=== PATIENT | female | born 2000 | race American Indian/Alaskan Native ===

== ENCOUNTER 2021-03-05 07:16 | Outpatient (CLI) | payer MEDICAID ==
[2021-03-05 09:00] VITALS: BP 118/73
[2021-03-05] MEDS ORDERED: LACTATED RINGERS 1,000 ML IV ONE (09:00)
[2021-03-05 09:09] LABS: Bilirubin,Urine NEG (Negative); Blood,Urine NEG (Negative); Color,Urine Yellow (Yellow); Mucus,Urine 3+ /HPF; Protein,Urine <15 mg/dL mg/dL (Negative)
== END 2021-03-05 10:42 | disposition home or self-care (01) ==
LOC: TRG 07:16 → APU 07:17 → TRG 10:42
PROVIDERS: ATTEND Obstetrics & Gynecology
DX: O26.892 Other specified pregnancy related conditions, second trimester (principal); R10.9 Unspecified abdominal pain; O47.02 False labor before 37 completed weeks of gestation, second trimester; Z3A.24 24 weeks gestation of pregnancy
CPT/HCPCS: 59025; 81001; 87086; 96360; J7120

== ENCOUNTER 2021-03-08 18:57 | Outpatient (CLI) | payer MEDICAID ==
[2021-03-08] MEDS ORDERED: LACTATED RINGERS 1000 ML IV SOLN IV PRN (19:19)
[2021-03-08] MEDS ORDERED: LACTATED RINGERS 500 ML IV ONE (20:19)
[2021-03-08] MEDS ORDERED: SODIUM CHLORIDE 0.9% 1000 ML 1,000 ML IV ONE (20:23)
[2021-03-08] MEDS ORDERED: ONDANSETRON 4 MG/2 ML INJ IV ONE (21:22)
[2021-03-08] MEDS ORDERED: D5W/LACTATED RINGERS 1,000 ML IV SCH (21:30)
[2021-03-08 21:52] LABS: BUN/Creatinine Ratio 23; Blood Urea Nitrogen 9 mg/dL (7-17); Calcium 8.2 mg/dL (8.4-10.2); Hemolysis Index 9
[2021-03-08] MEDS ORDERED: PROMETHAZINE 25 MG RECT SUPP PR ONE (22:45)
[2021-03-08 22:50] VITALS: BP 95/52
== END 2021-03-08 23:23 | disposition home or self-care (01) ==
LOC: TRG 18:57 → APU 19:00 → TRG 23:23
PROVIDERS: ATTEND Obstetrics & Gynecology
DX: O21.2 Late vomiting of pregnancy (principal); O47.02 False labor before 37 completed weeks of gestation, second trimester; Z3A.24 24 weeks gestation of pregnancy
CPT/HCPCS: 36415; 59025; 80048; 96361; 96374; J2405; J7030; J7120; J7121; 96360

== ENCOUNTER 2021-04-18 21:40 | Outpatient (CLI) | payer MEDICAID ==
[2021-04-18 22:00] VITALS: BP 113/69
[2021-04-18] MEDS ORDERED: LACTATED RINGERS 1,000 ML IV ONE (22:08)
[2021-04-18 23:06] LABS: Bacteria,Urine 3+ /HPF (Negative); Bilirubin,Urine NEG (Negative); Blood,Urine NEG (Negative); Color,Urine Yellow (Yellow); Mucus,Urine 3+ /HPF
[2021-04-18] MEDS ORDERED: LIDOCAINE-MPF (1%) 10 MG/1 ML VIAL 5 ML INFILTRATI ONE (23:51)
== END 2021-04-19 00:05 | disposition home or self-care (01) ==
LOC: TRG 21:40 → APU 21:46 → TRG 04-19 00:05
PROVIDERS: ATTEND Obstetrics & Gynecology
DX: O26.893 Other specified pregnancy related conditions, third trimester (principal); M54.5 Low back pain; R10.9 Unspecified abdominal pain; Z3A.30 30 weeks gestation of pregnancy
CPT/HCPCS: 59025; 81001; 87076; 87086; 87186; 96372; J0696

== ENCOUNTER 2021-05-26 01:03 | Outpatient (CLI) | payer MEDICAID ==
[2021-05-26 01:41] VITALS: BP 119/67
== END 2021-05-26 02:50 | disposition home or self-care (01) ==
LOC: TRG 01:03 → APU 01:05 → TRG 02:50
PROVIDERS: ATTEND Obstetrics & Gynecology
DX: Z34.93 Encounter for supervision of normal pregnancy, unspecified, third trimester (principal); Z3A.36 36 weeks gestation of pregnancy
CPT/HCPCS: 59025

== ENCOUNTER 2021-06-05 04:08 | Inpatient (IN) | payer MEDICAID ==
[2021-06-05] MEDS ORDERED: fentaNYL 100 MCG/2 ML INJ IV PRN ×2 (06:11→06:18)
[2021-06-05] MEDS ORDERED: OXYTOCIN 10 UNIT/1 ML INJ IM PRN (06:11)
[2021-06-05] MEDS ORDERED: miSOPROStol 200 MCG TAB PR PRN (06:11)
[2021-06-05] MEDS ORDERED: ONDANSETRON 4 MG/2 ML INJ IV PRN ×3 (06:11→18:48)
[2021-06-05] MEDS ORDERED: LIDOCAINE (2%) 20 MG/1 ML VIAL 20 ML MDV INFILTRATI ONE ×2 (06:11→18:23)
[2021-06-05] MEDS ORDERED: ePHEDrine SULFATE 50 MG/1 ML INJ IV PRN ×2 (06:11→11:04)
[2021-06-05] MEDS ORDERED: METHYLERGONOVINE MALEATE 0.2 MG/ML VIAL IM PRN (06:11)
[2021-06-05] MEDS ORDERED: BUTORPHANOL 2 MG/1 ML INJ IV PRN (06:11)
[2021-06-05] MEDS ORDERED: CARBOPROST TROMETHAMINE 250 MCG/1 ML INJ IM PRN (06:11)
[2021-06-05] MEDS ORDERED: NALOXONE 0.4 MG/1 ML INJ IV PRN (06:11)
[2021-06-05] MEDS ORDERED: MINERAL OIL 30 ML ORAL LIQD PO PRN (06:11)
[2021-06-05] MEDS ORDERED: LOPERAMIDE 2 MG CAP PO PRN (06:11)
[2021-06-05] MEDS ORDERED: TERBUTALINE 1 MG/1 ML INJ SUB-Q PRN (06:11)
[2021-06-05] MEDS ORDERED: LACTATED RINGERS 1,000 ML IV SCH (06:15)
[2021-06-05] MEDS ORDERED: ACETAMINOPHEN 325 MG TAB PO PRN ×2 (06:17→18:48)
[2021-06-05] MEDS ORDERED: OXYTOCIN DRIP 30 UNITS/500 ML BAG IV SCH (07:00)
[2021-06-05 07:48] LABS: Hematocrit 34.5 % (30.3-42.9); Hemoglobin 11.6 gm/dl (10.1-14.3); Mean Corpuscular HGB Conc 34 % (30-34); Mean Corpuscular Volume 81 fl (79-97); Platelet Count 240 K/mm3 (140-440); Red Blood Count 4.27 M/mm3 (3.65-5.03)
[2021-06-05] MEDS: LACTATED RINGERS 1,000 ML IV SCH ×2 (08:37→16:11)
[2021-06-05] MEDS: OXYTOCIN DRIP 30 UNITS/500 ML BAG IV SCH ×2 (09:15→13:02)
--- NOTE | 2021-06-05 10:54 | History and Physical Report ---
History of Present Illness Date of examination: 06/05/21 Date of admission: June 05, 2021 Chief complaint: Leakage of fluid History of present illness: 21-year-old G1, P0 at 37+3 weeks who presents with gross rupture of membranes. The patient is also experiencing irregular contractions. Her course was initiated in first trimester. Her care has been complicated by STD exposure of chlamydia. 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 Her anatomy scan was within normal limits. She is GBS negative Past History Past Medical History: other (Vitamin D deficiency) Past Surgical History: tonsillectomy Social history: single - Obstetrical History Expected Date of Delivery: 06/23/21 Actual Gestation: 37 Week(s) 3 Day(s) : 1 Para: 0 Hx # Term Pregnancies: 0 Number of Pregnancies: 0 Spontaneous Abortions: 0 Induced : 0 Number of Living Children: 0 Medications and Allergies Allergies Allergy/AdvReac Type Severity Reaction Status Date / Time No Known Allergies Allergy Unverified 03/05/21 07:52 Home Medications Medication Instructions Recorded Confirmed Last Taken Type Vitamin 1 tab PO DAILY 03/05/21 06/05/21 1 Day Ago History ~06/04/21 Active Meds: Active Medications Acetaminophen (Acetaminophen 325 Mg Tab) 325 mg PO Q6H PRN PRN Reason: Pain, Mild (1-3) Butorphanol Tartrate (Butorphanol 2 Mg/1 Ml Inj) 1 mg IV Q2H PRN PRN Reason: Pain, Moderate(4-6) LABOR PAIN Last Admin: 06/05/21 08:21 Dose: 1 mg Documented by: Butorphanol Tartrate (Butorphanol 2 Mg/1 Ml Inj) 2 mg IV Q2H PRN PRN Reason: Pain , Severe (7-10) Carboprost Tromethamine (Carboprost Tromethamine 250 Mcg/1 Ml Inj) 250 mcg IM ONCE PRN PRN Reason: Uterine Bleeding Ephedrine Sulfate (Ephedrine Sulfate 50 Mg/1 Ml Inj) 10 mg IV Q2M PRN PRN Reason: Hypotension Fentanyl (Fentanyl 100 Mcg/2 Ml Inj) 100 mcg IV Q2H PRN PRN Reason: Pain,Severe (7-10) LABOR PAIN Oxytocin/Sodium Chloride (Pitocin/Ns 30 Unit/500ml) 30 units in 500 mls @ 4 mls/hr IV TITR LIBBY; Protocol Last Admin: 06/05/21 09:15 Dose: 4 ml/hr, 4 mls/hr Documented by: Oxytocin/Sodium Chloride (Pitocin/Ns 30 Unit/500ml) 30 units in 500 mls @ 40 mls/hr IV TITR LIBBY; Protocol Lactated Ringer's (Lactated Ringers) 1,000 mls @ 125 mls/hr IV DIRECT LIBBY Last Admin: 06/05/21 08:37 Dose: 125 mls/hr Documented by: Loperamide HCl (Loperamide 2 Mg Cap) 2 mg PO ONCE PRN PRN Reason: give with Hemabate Methylergonovine Maleate (Methylergonovine Maleate 0.2 Mg/Ml Vial) 0.2 mg IM ONCE PRN PRN Reason: Uterine Bleeding Mineral Oil (Mineral Oil 30 Ml Oral Liqd) 30 ml PO QHS PRN PRN Reason: Constipation Misoprostol (Misoprostol 200 Mcg Tab) 800 mcg [place] ONCE PRN PRN Reason: Uterine Bleeding Naloxone HCl (Naloxone 0.4 Mg/1 Ml Inj) 0.1 mg IV Q2MIN PRN PRN Reason: Res Rate </= 8 or 02 SAT < 92% Ondansetron HCl (Ondansetron 4 Mg/2 Ml Inj) 4 mg IV Q8H PRN PRN Reason: Nausea And Vomiting Last Admin: 06/05/21 08:22 Dose: 4 mg Documented by: Oxytocin (Oxytocin 10 Unit/1 Ml Inj) 10 unit IM ONCE PRN PRN Reason: Uterine Bleeding Terbutaline Sulfate (Terbutaline 1 Mg/1 Ml Inj) 0.25 mg SUB-Q ONCE PRN PRN Reason: Hyperstimulation/Hypertonicity Review of Systems All systems: negative Genitourinary: leakage of fluid, contractions - Vital Signs Vital signs: Vital Signs Temp Pulse BP 97.9 F 94 H 124/75 06/05/21 04:28 06/05/21 04:28 06/05/21 04:28 Temp Pulse Resp BP Pulse Ox 98.3 F 108 H 18 119/75 98 06/05/21 08:10 06/05/21 10:49 06/05/21 08:10 06/05/21 08:12 06/05/21 10:49 - Physical Exam Breasts: Positive: deferred Cardiovascular: Regular rate Lungs: Positive: Clear to auscultation Abdomen: Positive: normal appearance - Obstetrical Cervical Dilatation: 1.5 Results Result Diagrams: 06/05/21 06:45 Abnormal lab results 06/05/21 06/05/21 Range/Units 04:40 06:45 MCH 27 L (28-32) pg RDW 16.0 H (13.2-15.2) % Membranes Rupture Positive A (Negative) All other labs normal. Assessment and Plan - Patient Problems (1) Spontaneous rupture of membranes Current Visit: Yes Status: Acute Plan to address problem: Admit to labor and delivery Augment with Pitocin
[2021-06-05] MEDS ORDERED: NALOXONE 2 MG/2 ML INJ IV PRN (11:04)
[2021-06-05] MEDS ORDERED: diphenhydrAMINE 50 MG/ML VIAL IV PRN (11:04)
[2021-06-05] MEDS ORDERED: NalbUPHINE 10 MG/1 ML INJ IV PRN (11:04)
[2021-06-05] MEDS: BUTORPHANOL 2 MG/1 ML INJ IV PRN ×2 (11:17→14:20)
[2021-06-05] MEDS ORDERED: fentaNYL-BUPIV 2 MCG/ML-0.125% 200 MCG/100 ML BAG EPIDURAL SCH (12:00)
[2021-06-05] MEDS ORDERED: LACTATED RINGERS 250 ML IV SOLN IV ONE (12:00)
[2021-06-05] MEDS ORDERED: HYDROcodone/ACETAMINOPHEN 5-325 MG TAB PO PRN (18:48)
[2021-06-05] MEDS ORDERED: LANOLIN/ZINC/DIMETHICONE (LANSINOH) 7 GM TP PRN (18:48)
[2021-06-05] MEDS ORDERED: PROMETHAZINE 25 MG RECT SUPP PR PRN (18:48)
[2021-06-05] MEDS ORDERED: MAGNESIUM HYDROXIDE (MOM) ORAL LIQD UDC PO PRN (18:48)
[2021-06-05] MEDS ORDERED: PROMETHAZINE 25 MG TAB PO PRN (18:48)
[2021-06-05] MEDS ORDERED: WITCH HAZEL/ GLYCERIN PAD TP PRN (18:48)
[2021-06-05] MEDS ORDERED: diphenhydrAMINE 25 MG CAP PO PRN (18:48)
--- NOTE | 2021-06-05 18:52 | Procedure Note ---
OB Delivery Note - Delivery Date of Delivery: 06/05/21 Surgeon: ISAIAH WEINER Estimated blood loss: 200cc - Vaginal Delivery position: OA Intrapartum events: other(please specify) (precipitous nurse delivery) Delivery placenta: spontaneous Delivery cord: 3 umbilical vessels Episiotomy: none Delivery comments: I was called for the precipitous nurse delivery of this viable female. Upon entering the room, patient had delivered atrauamtically. I delivered an intact placenta spontaneously(three vessel cord). No lacerations All sponge, needle and instrument counts correctx2 Mom and baby stable. EBL 200ml. Renato Weiner MD
[2021-06-05] MEDS ORDERED: oxyCODONE /ACETAMINOPHEN 5-325MG TAB PO PRN (21:50)
[2021-06-05] MEDS: IBUPROFEN 600 MG TAB PO PRN (22:06)
[2021-06-06] MEDS ORDERED: IBUPROFEN 600 MG TAB PO SCH
[2021-06-06] MEDS: IBUPROFEN 600 MG TAB PO PRN (05:34)
[2021-06-06 08:57] VITALS: BP 115/63
--- NOTE | 2021-06-06 11:26 | Progress Note ---
Assessment and Plan - Patient Problems (1) Spontaneous rupture of membranes Current Visit: Yes Status: Acute Plan to address problem: Patient doing well Discharge home Subjective - Subjective Date of service: 06/06/21 Interval history: Patient is currently without any significant complaints. Her pain is well controlled. Patient reports: appetite normal, voiding normally, pain well controlled : doing well Objective - Vital Signs Latest vital signs: Vital Signs Temp Pulse Resp BP BP Pulse Ox 06/06/21 08:43 97.5 F L 98 H 18 115/63 98 06/06/21 06:34 18 06/06/21 05:34 18 06/06/21 04:41 98.0 F 106 H 18 106/42 97 06/06/21 00:30 98.6 F 74 18 114/78 06/05/21 23:06 18 06/05/21 22:06 18 06/05/21 20:49 98.3 F 104 H 20 118/76 97 06/05/21 20:16 100 H 98 06/05/21 20:11 109 H 99 06/05/21 20:09 94 H 120/69 06/05/21 20:06 110 H 99 06/05/21 20:01 111 H 98 06/05/21 19:56 113 H 98 06/05/21 19:54 120 H 125/68 06/05/21 19:51 115 H 99 06/05/21 19:46 107 H 98 06/05/21 19:41 113 H 98 06/05/21 19:39 112 H 117/67 06/05/21 19:36 111 H 97 06/05/21 19:31 114 H 99 06/05/21 19:26 111 H 99 06/05/21 19:24 113 H 122/70 06/05/21 19:21 118 H 99 06/05/21 19:16 117 H 98 06/05/21 19:11 115 H 98 06/05/21 19:09 116 H 112/62 06/05/21 19:06 120 H 100 06/05/21 19:01 117 H 98 06/05/21 18:56 119 H 99 06/05/21 18:52 117 H 128/68 06/05/21 18:51 119 H 100 06/05/21 18:46 119 H 98 06/05/21 18:41 118 H 99 06/05/21 18:40 117 H 126/69 06/05/21 18:36 98.4 F 132 H 98 06/05/21 18:31 150 H 93 21 18:26 132 H 100 07 18:21 109 H 98 07 18:16 123 H 98 06/05/21 18:11 112 H 100 0717 18:06 115 H 97 06/05/21 18:01 122 H 95 06/05/21 17:56 111 H 99 06/05/21 17:51 107 H 99 06/05/21 17:46 122 H 98 06/05/21 17:41 107 H 100 06/05/21 17:40 113 H 94 06/05/21 17:36 115 H 99 06/05/21 17:31 110 H 100 06/05/21 17:27 110 H 85 06/05/21 17:26 112 H 99 06/05/21 17:21 108 H 98 06/05/21 17:16 114 H 96 06/05/21 17:11 107 H 98 06/05/21 17:07 117 H 94 06/05/21 17:06 115 H 100 06/05/21 17:01 93 H 99 06/05/21 16:57 91 07 16:55 108 H 99 06/05/21 16:51 105 H 100 06/05/21 16:46 94 H 100 06/05/21 16:41 89 97 17 16:36 109 H 99 06/05/21 16:31 100 H 98 06/05/21 16:26 103 H 99 06/05/21 16:21 104 H 97 21 16:16 103 H 96 1721 16:11 114 H 97 1721 16:06 110 H 98 17 16:01 106 H 100 06/05/21 15:56 116 H 98 06/05/21 15:51 115 H 99 21 15:46 77 L 07 15:41 99 H 87 06/05/21 15:36 104 H 100 1721 15:31 96 H 100 06/05/21 15:26 96 H 100 06/05/21 15:21 107 H 97 06/05/21 15:15 105 H 99 06/05/21 15:11 95 H 99 06/05/21 15:05 109 H 99 06/05/21 15:04 111 H 94 06/05/21 15:00 108 H 99 06/05/21 14:55 105 H 97 06/05/21 14:50 106 H 99 06/05/21 14:45 93 H 99 06/05/21 14:40 103 H 98 06/05/21 14:35 106 H 98 06/05/21 14:33 109 H 94 06/05/21 14:30 107 H 99 06/05/21 14:25 102 H 97 06/05/21 14:21 110 H 94 06/05/21 14:20 107 H 98 06/05/21 14:15 90 99 06/05/21 14:10 106 H 98 06/05/21 14:05 97 H 98 06/05/21 14:01 101 H 93 06/05/21 14:00 102 H 93 06/05/21 13:55 113 H 98 06/05/21 13:50 110 H 100 06/05/21 13:45 115 H 96 06/05/21 13:40 115 H 97 06/05/21 13:37 106 H 80 L 06/05/21 13:35 116 H 99 06/05/21 13:30 112 H 99 06/05/21 13:29 102 H 94 06/05/21 13:25 116 H 96 06/05/21 13:20 106 H 100 06/05/21 13:15 104 H 100 06/05/21 13:10 103 H 99 06/05/21 13:05 106 H 99 06/05/21 13:00 113 H 98 06/05/21 12:55 107 H 100 06/05/21 12:50 109 H 100 06/05/21 12:45 93 H 100 06/05/21 12:40 99 H 99 06/05/21 12:35 92 H 100 06/05/21 12:30 96 H 98 06/05/21 12:25 97 H 99 06/05/21 12:20 102 H 100 06/05/21 12:14 96 H 99 06/05/21 12:09 84 98 06/05/21 12:04 105 H 100 06/05/21 12:00 122 H 94 06/05/21 11:59 100 H 97 06/05/21 11:54 107 H 98 06/05/21 11:49 100 H 99 06/05/21 11:44 96 H 99 06/05/21 11:39 94 H 98 06/05/21 11:34 92 H 98 06/05/21 11:29 97 H 98 Intake and Output 06/05/21 06/06/21 06/06/21 22:59 06:59 14:59 Intake Total 360.875 7841 Output Total 900 Balance 945.833 180 Intake: IV 945.833 Lactated Ringers 1,000 ml 945.833 @ 125 mls/hr IV DIRECT LIBBY Rx#:[id number] Oral 360 Intake, Free Water 720 Output: Urine 900 Void 900 Other: Total, Intake Amount 360 Total, Output Amount 300 # Voids Void 1 Estimated Blood Loss 100 - Exam Uterus: Present: normal, firm
--- NOTE | 2021-06-06 11:27 | Discharge Summary ---
Providers - Providers Date of Admission: 06/05/21 18:33 Date of discharge: 06/06/21 Attending physician: MONA KIRK Primary care physician: MONA KIRK Hospitalization Reason for admission: rupture of membranes Delivery: Discharge diagnosis: IUP at term delivered Hospital course: The patient was admitted with evidence spontaneous rupture membranes. She was augmented with Pitocin. She had a normal spontaneous vaginal delivery. Her course was uneventful. Condition at discharge: Good Disposition: DC-01 TO HOME OR SELFCARE - Discharge Diagnoses (1) Spontaneous rupture of membranes Status: Acute Plan - Discharge Medications Prescriptions: Ibuprofen [Motrin] 800 mg PO Q8HR PRN #30 tablet PRN Reason: Pain , Severe (7-10) HYDROcodone/APAP 5-325 [[place] 5/325] 1 each PO Q6HR PRN #15 tablet PRN Reason: Pain - Provider Discharge Summary Activity: no sex for 6 weeks, no heavy lifting 4 weeks, no strenuous exercise Diet: routine Instructions: routine Additional instructions: [] Smoking cessation referral if applicable(refer to patient education folder for contact #) [] Refer to [facility] Booklet Call your doctor immediately for: * Fever > 100.5 * Heavy vaginal bleeding ( >1 pad per hour) * Severe persistent headache * Shortness of breath * Reddened, hot, painful area to leg or breast * Schedule visit in 4 weeks - Follow up plan
[2021-06-06 11:47] LABS: Hematocrit 30.5 % (30.3-42.9); Hemoglobin 9.7 gm/dl (10.1-14.3)
== END 2021-06-06 20:30 | disposition home or self-care (01) | DRG 775 ==
LOC: TRG 04:08 → APU 04:10 → LD 08:15 → TRG 18:31 → LD 18:33 → OB 20:20
PROVIDERS: ADMIT Obstetrics & Gynecology; ATTEND Obstetrics & Gynecology
PROC: 10E0XZZ Delivery of Products of Conception, External Approach (ICD-10-PCS; principal; 2021-06-05)
DX: O80 Encounter for full-term uncomplicated delivery (principal); Z37.0 Single live birth; Z90.49 Acquired absence of other specified parts of digestive tract; Z3A.37 37 weeks gestation of pregnancy; Z20.822 Contact with and (suspected) exposure to COVID-19
CPT/HCPCS: 36415; 59025; 84112; 85014; 85018; 85027; 86850; 86900; 86901; G0378; J0595; J2405; J2590; J3010; J7120; U0003